=== PATIENT | male | born 1950 ===

== ENCOUNTER 2018-01-15 18:20 | Emergency (ER) | payer MEDICARE, OTHER ==
[2018-01-15 19:11] VITALS: BP 150/99; PULSE 101; TEMP 98.8; O2SAT 100; BMI 37.1
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
[2018-01-15 21:02] VITALS: RESP 20
== END 2018-01-15 21:01 | disposition home or self-care (01) ==
LOC: C.ER 18:20
DX: S00.83XA Contusion of other part of head, initial encounter (principal); S00.01XA Abrasion of scalp, initial encounter; Y00.XXXA Assault by blunt object, initial encounter; Y92.59 Other trade areas as the place of occurrence of the external cause